=== PATIENT | male | born 1945 | race Caucasian/White ===

== ENCOUNTER → 2017-09-02 | Outpatient (CLI) | payer MEDICARE ==
[~2017-09-02] VITALS: Ht 154.9 cm; Wt 98.6 kg
[~2017-09-02] MED LIST: AMLO5TAB2 PO; CHLORHEXIDINE GLUCONATE 2 % 1 PACK (2 CLOTHS) TOPICAL PRN; DEXTROSE 5%-LACTATED RING INJ 1,000 ML IV SCH; GEMF600T PO; INSULIN HUMAN REGULAR 1,000 UNITS/10 ML VIAL SQ PRN; LACTATED RINGER'S 1000 ML IV PRN; LIDOCAINE HCL 1% PF 5 ML SYRINGE OTHER ONE; METF1000 PO; METOPROLOL TARTRATE 25 MG TAB PO PRN; OMEGCAP PO; OMEP20TA93 PO; POVIDONE IODINE 5% (ANTISEPSIS KIT) 4 APPLICATIONS EACH NARE PRN; PROPOFOL 200 MG/20 ML AMP IV ONE; SODIUM CHLORID 0.9% 500 ML IV PRN; VITA100018 PO; ePHEDrine/NS 25 MG/5 ML SYR IV ONE
--- NOTE | 2017-09-02 12:37 | GIPROC ---
[facility] [address] [facility]. 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 TOPICAL ANESTHETIC: none CONSENT: The patient understands the risks and benefits of the procedure and understands that these risks include, but are not limited to: sedation, allergic reaction, infection, perforation and/or bleeding. Alternative means of evaluation and treatment include, among others: physical exam, x-rays, and/or surgical intervention. The patient elects to proceed with this endoscopic procedure. DESCRIPTION OF PROCEDURE: checked for proper function. Hand hygiene and appropriate measures for infection prevention was taken. After the risks, benefits and alternatives of the procedure were thoroughly explained, Informed consent was verified, confirmed and timeout was successfully executed by the treatment team. The Better[employer]onax EG-[id number] endoscope was introduced through the mouth and advanced to the gastric fundus . The mucosa was examined both on insertion and withdrawal. Retroflexion was performed in the gastric fundus. The area of the Quinteros's esophagus was mapped. The gastroscope was removed and cryoablation ablation device was attached to the tip of the gastroscope, which was re-introduced into the esophagus under direct visualization. Cyoablation device was directed to the targeted area of Quinteros's esophagus. With the targeted area in 12 o' clock position with the endoscopic view, The ablated zone was scrapped with the tip of the HALO-90 device to remove the coagulative debris. T The gastroscope was inserted into the stomach, the gastric contents were suctioned and the ablation zone was inspected. Esophagoscopy confirmed complete ablation of all intestinal metaplasia. Rest of the findings are given below. The patient tolerated the procedure well and was sent to Recovery in stable condition. Very small area ob Quinteros's remaining-s/p cryoablation. ADVERSE EVENTS: There were no complications. 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 Anti-reflux regimen 2. Continue PPI full liquid diet resume medications egd in 1 yr REPEAT EXAM: Return EGD 1 year Angelika Seymour MD eSigned: Angelika Seymour MD 09/02/2017 12:36 PM cc: . Joe Fernández PATIENT NAME: Felice Gutierrez MR#: [id number]
[2017-09-02 13:25] VITALS: BP 124/71; PULSE 66; RESP 20; TEMP 96.9; O2SAT 98
== END ==
LOC: HEND 09:06
PROVIDERS: ATTEND Internal Medicine Gastroenterology
DX: K22.70 Barrett's esophagus without dysplasia (principal); J44.0 Chronic obstructive pulmonary disease with (acute) lower respiratory infection; I10 Essential (primary) hypertension; I70.0 Atherosclerosis of aorta
CPT/HCPCS: 43270; 46930